=== PATIENT | female | born 2000 | race Caucasian/White ===

== ENCOUNTER 2022-04-01 12:00 | Outpatient (REF) | payer BC, SELFPAY ==
--- NOTE | 2022-04-01 14:30 | PAPFT_PTH ---
PATIENT: Lesa Gomez LOC: [facility] U#:[id number] AGE/SX: 22/F ROOM: RE04/01/[address]: Lan Alvares DNP : 2000 BED: DIS: 04/01/2022 SPEC #: [id number] RECD: 04/02/22 12:54 STATUS: LUIS CARLOS REQ #: [id number] ZENON: 04/01/22 14:[address]: aLn Quinones DEPT: [facility] Cytology RECD BY: Jacinta Ramos Tissues: 1 - CX/ENDOCX FOR PAP SMEARS Procedures: PAP THIN PREP/[facility] Screening Comments: [id number]
== END 2022-04-01 12:01 | disposition home or self-care (01) ==
LOC: LBN 12:00
PROVIDERS: PCP Nurse Practitioner Family; Visit Provider Nurse Practitioner Family
DX: Z11.51 Encounter for screening for human papillomavirus (HPV) (principal)
CPT/HCPCS: 88142

== ENCOUNTER 2023-04-09 04:37 | Outpatient (CLI) | payer BC, SELFPAY ==
[2023-04-09 12:53] LABS: ALT 24 U/L (14-59); AST 28 U/L (15-37); Albumin 3.5 g/dL (3.4-5.0); Alkaline Phosphatase 93 U/L (46-116); BUN 16 mg/dL (7-18); Bilirubin, Total 0.4 mg/dL (0.2-1.0); CREATININE 0.8 mg/dL (0.55-1.02); Calcium 9.1 mg/dL (8.5-10.1); Calculated LDL 103 mg/dL (<100); Chloride 102 mmol/L (98-107); Cholesterol 174 mg/dL (<200); Glucose 101 mg/dL (74-106); HDL Cholesterol 57 mg/dL (40-60); Potassium 4.4 mmol/L (3.5-5.1); Sodium 137 mmol/L (136-145); Total Protein 9.1 g/dL (6.4-8.2); Triglyceride 70 mg/dL (<150)
[2023-04-09 18:34] LABS: HIV-1/2 Ag & Ab Screen Negative (Negative)
[2023-04-09 21:46] LABS: Hepatitis C Ab w Rflx HCV PCR Negative (Negative)
[2023-04-10 10:22] LABS: Syphilis Serology (RPR) Negative (Negative)
== END 2023-04-09 04:38 | disposition home or self-care (01) ==
LOC: LOS 04:37
PROVIDERS: PCP Nurse Practitioner Family; Visit Provider Nurse Practitioner Family
DX: Z13.220 Encounter for screening for lipoid disorders (principal); Z11.3 Encounter for screening for infections with a predominantly sexual mode of transmission
CPT/HCPCS: 36415; 80053; 80061; 86803; 87389; 86592

== ENCOUNTER 2023-04-30 21:02 | Outpatient (REF) | payer BC, SELFPAY ==
[2023-05-02 12:59] LABS: Chlamydia Result Negative (Negative); GC Result Negative (Negative)
== END 2023-04-30 21:03 | disposition home or self-care (01) ==
LOC: LBN 21:02
PROVIDERS: PCP Nurse Practitioner Family; Visit Provider Nurse Practitioner Family
DX: Z11.3 Encounter for screening for infections with a predominantly sexual mode of transmission (principal)
CPT/HCPCS: 87491; 87591

== ENCOUNTER 2024-04-14 12:04 | Outpatient (REF) | payer BC, SELFPAY ==
--- NOTE | 2024-04-14 13:40 | PAPFT_PTH ---
PATIENT: Lesa Gomez LOC: [facility] U#:[id number] AGE/SX: 24/F ROOM: RE04/14/[address]: Lan Alvares DNP : 2000 BED: DIS: 04/14/2024 SPEC #: [id number] RECD: 04/15/24 13:07 STATUS: LUIS CARLOS RESenthil #: [id number] ZENON: 04/14/24 13:[address]: Lan Quinones DEPT: [facility] Cytology RECD BY: Jacinta Ramos Tissues: 1 - CX/ENDOCX FOR PAP SMEARS Procedures: PAP THIN PREP/[facility] Screening Comments: [id number] (UNSATISFACTORY FOR EVALUATION)
== END 2024-04-14 12:05 | disposition home or self-care (01) ==
LOC: LBN 12:04
PROVIDERS: PCP Nurse Practitioner Family; Visit Provider Nurse Practitioner Family
DX: R87.615 Unsatisfactory cytologic smear of cervix
CPT/HCPCS: 88142

== ENCOUNTER 2024-08-26 11:48 | Outpatient (REF) | payer BC, SELFPAY | END 2024-08-26 11:49 | disposition home or self-care (01) | LOC: LBN 11:48 | PROVIDERS: PCP Nurse Practitioner Family; Visit Provider Nurse Practitioner Family | DX: T14.8XXA Other injury of unspecified body region, initial encounter (principal) | CPT/HCPCS: 87070; 87205 ==